=== PATIENT | male | born 1960 | race Caucasian/White ===

== ENCOUNTER 2017-05-07 22:57 | Inpatient (IN) ==
[2017-05-07] MEDS ORDERED: Vancomycin 1,000 MG in D5% in Water 250 ML IVPB ONE (23:27)
[2017-05-07] MEDS ORDERED: Piperacillin/Tazobactam 3.375 GM in D5% in Water (Mini-Bag+) 100 ML IVPB ONE (23:27)
[2017-05-07] MEDS ORDERED: 0.9 % Sodium Chloride 1,000 ML IVC ONE (23:28)
[2017-05-07] MEDS ORDERED: 0.9 % Sodium Chloride 1,000 ML IVC SCH (23:30)
--- NOTE | 2017-05-07 23:31 | Emergency Department Note ---
Disposition Clinical Impression: Cellulitis of left leg, Hyperglycemia, Renal insufficiency Disposition: Transfer Short-Term Hosp Condition: Good Referrals: NO,PCP [Primary Care Provider] - Forms: ED Satisfaction Letter Time of Disposition: 02:18 Skin/Abscess/FB HPI Chief complaint: ED Skin/Abscess/Foreign Body Stated complaint: l leg red & don't feel good Time Seen by Provider: 05/07/17 23:25 Source: patient Mode of arrival: ambulatory Limitations: no limitations Nursing Notes Reviewed: Yes Vital Signs Reviewed: Yes HPI Narrative: 57-year-old diabetic, bilateral amputee and lower extremities, presents with redness of his left BKA amputation. He recently had a wound VAC removed. He has a small ulcer remaining. He developed redness on his stump on Wednesday. He was seen by his physician and placed on oral antibiotics. He states ever since then he has been nauseated and dry heaving. He states his blood sugars up in in 3-400 range. No fever. The redness has gotten worse. Pt Subjective Complaint: discoloration Onset (ago): day(s) (Redness left BKA stump 5) Location: LLE Severity: moderate Quality: burning Consistency: constant Improves with: immobilization Worsens with: palpation, movement Context: other (Recent removal wound VAC.) Associated symptoms: Reports: denies other symptoms Treatments prior to arrival: antibiotic Home Medications Medication Instructions Recorded Confirmed Atorvastatin Calcium 40 mg PO DAILY 05/07/17 05/07/17 Carvedilol [Coreg] 37.5 mg PO BID 05/07/17 05/07/17 Ciprofloxacin [Cipro] 500 mg PO BID 05/07/17 05/07/17 FLUoxetine HCl [PROzac] 20 mg PO DAILY 05/07/17 05/07/17 Furosemide [Lasix] 40 mg PO DAILY 05/07/17 05/07/17 Insulin ASPART [NovoLOG] 26 unit ONCE 05/07/17 05/07/17 Insulin Glargine [Lantus] 0 unit 05/07/17 Lisinopril [Zestril] 40 mg PO DAILY 05/07/17 05/07/17 Magnesium Oxide [Magnesium] 400 mg PO BID 05/07/17 05/07/17 Potassium Chloride [Klor-Con 10] 10 meq PO DAILY 05/07/17 05/07/17 Quetiapine Fumarate [SEROquel] 100 mg PO HS 05/07/17 05/07/17 amLODIPine [Norvasc] 10 mg PO DAILY 05/07/17 05/07/17 Allergies Allergy/AdvReac Type Severity Reaction Status Date / Time Oxycodone [From Percocet] AdvReac Itching Verified 04/06/16 01:43 All systems ED: reviewed and negative except as stated. Constitutional: Denies: fever, chills Eyes: Denies: eye discharge ENT ED: Denies: ear pain, throat pain Cardiovascular: Denies: chest pain Respiratory: Denies: cough, dyspnea Gastrointestinal: Reports: nausea, vomiting. Denies: abdominal pain, diarrhea Genitourinary: Denies: urgency, dysuria, frequency Integumentary: Reports: other (Redness left BKA stump with small ulcer.) Past Medical History - Past Medical History Medical history: Reports: coronary artery disease, CVA, diabetes, hyperlipidemia , hypertension, myocardial infarction, other Surgical history: Reports: coronary bypass (CABG), other Psychiatric history: Reports: anxiety, depression, other - Social History Smoking Status: Current every day smoker Smokeless Tobacco Status: No Alcohol use: Reports: none Drug use: Reports: none Physical Exam - General Limitations: no limitations General appearance: alert, in no apparent distress - Head Head exam: atraumatic, normocephalic - Eye Eye exam: Present: PERRL, EOMI. Absent: scleral icterus, conjunctival injection - ENT ENT exam: normal oropharynx, mucous membranes moist, TM's normal bilaterally - Neck Neck exam: Present: normal inspection, full ROM, trachea midline. Absent: tenderness, lymphadenopathy - Respiratory Respiratory exam: Present: normal lung sounds bilaterally. Absent: respiratory distress, wheezes - Cardiovascular Cardiovascular exam: Present: regular rate, normal rhythm, normal heart sounds - Abdominal Exam Abdominal exam: Present: soft, Non-Tender. Absent: distention, organomegaly, mass - Extremities Exam Extremities exam: Present: other (Right AK amputation. Left BK amputation. There is a 2 cm superficial ulceration on the distal BK stump. There is diffuse erythema of the distal stump and dorsal stump up to the knee. It is warm to touch.) - Neurological Exam Neurological exam: Present: alert, oriented X3. Absent: motor sensory deficit - Psychiatric Psychiatric exam: Present: normal affect, normal mood - Skin Skin exam: Present: warm, dry, erythema (Left BK stump is noted above.) Course - Reevaluation(s) Reevaluation #1: Test results reviewed with the patient and his . We discussed treatment options. I feel he needs to be admitted. The patient and his are requesting transfer to [facility]. I will page the hospitalist to discuss the patient's care with them. Time: 01:24 Reevaluation #2: Discussed with the hospitalist at [facility], Dr. Conley. She wanted me to make the patient aware that he might not be seen by his general surgeon. She wanted me to make them aware that they would not be seen by infectious diseases weekend. She said if they were okay with that than she would accept him. I spoke with the patient again. At this point in time he decided to stay here. Time: 01:47 Reevaluation #3: Discussed with Dr. Shannon. He has accepted patient for admission. Time: 02:17 Vital Signs Temperature 97.1 F L 05/07/17 22:58 Pulse Rate 72 05/07/17 22:58 Respiratory Rate 16 05/07/17 22:58 Blood Pressure 115/57 05/07/17 22:58 O2 Sat by Pulse Oximetry 96 05/07/17 22:58 Temperature 97.1 F L 05/07/17 22:58 Pulse Rate 70 05/08/17 01:28 Respiratory Rate 14 05/08/17 01:28 Blood Pressure 122/73 05/08/17 01:28 O2 Sat by Pulse Oximetry 91 05/08/17 01:28 Oxygen Delivery Oxygen Delivery Room Air Skin/Abscess/Foreign Body - MDM Narrative Medical decision making narrative: Differential includes but is not limited to cellulitis, abscess, osteomyelitis, uncontrolled diabetes mellitus, dehydration, sepsis. His white blood cell count was significantly elevated. His blood sugar is elevated. He will require IV hydration, insulin, IV antibiotics. - Lab Data Lab results reviewed: Yes I reviewed the patient's lab results. Result diagrams: 05/07/17 23:50 05/07/17 23:50 Lab Results 05/07/17 05/07/17 05/07/17 Range/Units 00:45 23:50 23:50 WBC 25.2 H (4.3-11.1) K/mcL RBC 3.50 L (4.19-5.50) M/mcL Hgb 10.6 L (12.9-16.9) g/dL Hct 30.8 L (37.5-50.1) % MCV 88.0 (83.0-100.0) fL MCH 30.3 (28.0-33.3) pg MCHC 34.4 (31.6-35.5) g/dL RDW 13.5 (11.5-14.5) % Plt Count 477 H (140-400) K/mcL MPV 9.7 (9.4-12.4) fL Seg Neutrophils % 88.0 % Band Neutrophils % 6.0 H (0-4) % Lymphocytes % 6.0 % Neutrophils # 23.7 H (1.6-8.9) K/mcL Lymphocytes # 1.5 (0.6-4.6) K/mcL Platelet Estimate Increased H (Normal) Hypochromasia Present A (Not Present) VBG pH (7.32-7.42) pH Units VBG pCO2 (41-51) mmHg VBG pO2 (25-40) mmHg VBG HCO3 (21-27) mEq/L VBG Lactic Acid (0.5-2.2) mmol/L Sodium 128 L (136-145) mEq/L Potassium 4.8 H (3.5-4.5) mEq/L Chloride 94 L (98-109) mEq/L Carbon Dioxide 21 (19-29) mEq/L BUN 31 H (8-26) mg/dL Creatinine 2.25 H (0.72-1.25) mg/dL Est GFR ( Amer) 37 L (> 60) Est GFR (Non-Af Amer) 30 L (> 60) BUN/Creatinine Ratio 14 (6-26) Glucose 534 H* (70-99) mg/dL Calculated Osmolality 297 (280-300) Calcium 9.2 (8.6-10.8) mg/dL Total Bilirubin 0.5 (0.2-1.2) mg/dL AST 12 (5-34) Units/L ALT 15 (0-55) Units/L Alkaline Phosphatase 96 (38-126) Units/L Serum Total Protein 7.3 (6.0-8.3) g/dL Albumin 2.0 L (3.5-5.0) g/dL Globulin 5.3 H (2.4-3.5) g/dL Albumin/Globulin Ratio 0.4 L (1.1-2.2) Beta-Hydroxybutyric Acd 0.35 H (0.02-0.27) mmol/L Urine Color Yellow (Yellow) Urine Clarity Clear (Clear) Urine pH 5.5 (5.0-8.0) pH Units Ur Specific [place] 1.010 (1.010-1.025) Urine Protein 30 H (Neg-Trace) mg/dL Urine Glucose (UA) >=1000 H (Normal) mg/dL Urine Ketones Negative (Negative) mg/dL Urine Blood Small H (Negative) Urine Nitrite Negative (Negative) Urine Bilirubin Negative (Negative) Urine Urobilinogen Normal (Normal) mg/dL Ur Leukocyte Esterase Negative (Negative) Urine Microscopic RBC 0-3 (0-3) per hpf Urine Microscopic WBC 3-5 H (0-3) per hpf Ur Squamous Epith Cells Few (None-Few) per lpf Urine Bacteria None Seen (None-Few) per hpf Ur Culture Indicated? NO (NO) 05/07/17 05/07/17 Range/Units 23:50 23:50 WBC (4.3-11.1) K/mcL RBC (4.19-5.50) M/mcL Hgb (12.9-16.9) g/dL Hct (37.5-50.1) % MCV (83.0-100.0) fL MCH (28.0-33.3) pg MCHC (31.6-35.5) g/dL RDW (11.5-14.5) % Plt Count (140-400) K/mcL MPV (9.4-12.4) fL Seg Neutrophils % % Band Neutrophils % (0-4) % Lymphocytes % % Neutrophils # (1.6-8.9) K/mcL Lymphocytes # (0.6-4.6) K/mcL Platelet Estimate (Normal) Hypochromasia (Not Present) VBG pH 7.39 (7.32-7.42) pH Units VBG pCO2 36.7 L (41-51) mmHg VBG pO2 31 (25-40) mmHg VBG HCO3 22.1 (21-27) mEq/L VBG Lactic Acid 3.0 H (0.5-2.2) mmol/L Sodium (136-145) mEq/L Potassium (3.5-4.5) mEq/L Chloride (98-109) mEq/L Carbon Dioxide (19-29) mEq/L BUN (8-26) mg/dL Creatinine (0.72-1.25) mg/dL Est GFR ( Amer) (> 60) Est GFR (Non-Af Amer) (> 60) BUN/Creatinine Ratio (6-26) Glucose (70-99) mg/dL Calculated Osmolality (280-300) Calcium (8.6-10.8) mg/dL Total Bilirubin (0.2-1.2) mg/dL AST (5-34) Units/L ALT (0-55) Units/L Alkaline Phosphatase (38-126) Units/L Serum Total Protein (6.0-8.3) g/dL Albumin (3.5-5.0) g/dL Globulin (2.4-3.5) g/dL Albumin/Globulin Ratio (1.1-2.2) Beta-Hydroxybutyric Acd (0.02-0.27) mmol/L Urine Color (Yellow) Urine Clarity (Clear) Urine pH (5.0-8.0) pH Units Ur Specific [place] (1.010-1.025) Urine Protein (Neg-Trace) mg/dL Urine Glucose (UA) (Normal) mg/dL Urine Ketones (Negative) mg/dL Urine Blood (Negative) Urine Nitrite (Negative) Urine Bilirubin (Negative) Urine Urobilinogen (Normal) mg/dL Ur Leukocyte Esterase (Negative) Urine Microscopic RBC (0-3) per hpf Urine Microscopic WBC (0-3) per hpf Ur Squamous Epith Cells (None-Few) per lpf Urine Bacteria (None-Few) per hpf Ur Culture Indicated? (NO)
[2017-05-07] MEDS ORDERED: Ondansetron 4 MG/2 ML VIAL ONE (23:56)
[2017-05-07] MEDS: Ondansetron 4 MG/2 ML VIAL IVP STA (23:57)
[2017-05-08 00:16] LABS: VBG HCO3 22.1 mEq/L (21-27); VBG PCO2 36.7 mmHg (41-51); VBG PH 7.39 pH Units (7.32-7.42)
[2017-05-08 00:20] LABS: Hematocrit 30.8 % (37.5-50.1); Hemoglobin 10.6 g/dL (12.9-16.9); Mean Corpuscular HGB Conc 34.4 g/dL (31.6-35.5); Mean Corpuscular Hemoglobin 30.3 pg (28.0-33.3); Mean Platelet Volume 9.7 fL (9.4-12.4); Platelet Count 477 K/mcL (140-400); Red Cell Distribution Width 13.5 % (11.5-14.5)
[2017-05-08 00:26] LABS: Albumin/Globulin Ratio 0.4 (1.1-2.2); Bilirubin,Total 0.5 mg/dL (0.2-1.2); Calcium 9.2 mg/dL (8.6-10.8); Globulin 5.3 g/dL (2.4-3.5); Potassium 4.8 mEq/L (3.5-4.5); Total Protein 7.3 g/dL (6.0-8.3)
[2017-05-08 00:40] LABS: Beta-Hydroxybutyric Acid 0.35 mmol/L (0.02-0.27)
[2017-05-08 00:43] LABS: Lymphocytes # 1.5 K/mcL (0.6-4.6); Neutrophils # 23.7 K/mcL (1.6-8.9)
[2017-05-08 00:44] LABS: Hypochromasia Present (Not Present); Platelet Estimate Increased (Normal)
[2017-05-08 00:49] LABS: Bilirubin,Urine Negative (Negative); Blood,Urine Small (Negative); Clarity,Urine Clear (Clear); Color,Urine Yellow (Yellow); Glucose,Urine (UA) >=1000 mg/dL (Normal); Ketones,Urine Negative (Negative); Leukocyte Esterase,Urine Negative (Negative); Nitrite,Urine Negative (Negative); PH,Urine 5.5 pH Units (5.0-8.0); Protein,Urine 30 mg/dL (Neg-Trace); Urobilinogen,Urine Normal (Normal)
[2017-05-08] MEDS ORDERED: Insulin Human Regular 10 UNIT in 0.9 % Sodium Chloride 10 ML IV ONE (00:53)
[2017-05-08 01:07] LABS: Bacteria,Urine None Seen per hpf (None-Few); RBC,Urine 0-3 per hpf (0-3); Squamous Epithelial Cell,Urine Few per lpf (None-Few)
[2017-05-08] MEDS ORDERED: Ondansetron 4 MG/2 ML VIAL IVP ONE (01:46)
[2017-05-08] MEDS: Ondansetron 4 MG/2 ML VIAL IVP STA (01:51)
[2017-05-08] MEDS ORDERED: Vancomycin 2,000 MG in D5% in Water 250 ML IVPB SCH (03:15)
[2017-05-08] MEDS ORDERED: Ondansetron 4 MG/2 ML VIAL ONE (03:15)
[2017-05-08] MEDS ORDERED: *HR* Dextrose 50 % in Water (Syg) 50 ML SYRINGE IVP PRN (03:15)
[2017-05-08] MEDS ORDERED: Dextrose Gel 15 GM PO PRN ×2 (03:15)
[2017-05-08] MEDS ORDERED: D5% in Water 1,000 ML IVC PRN (03:15)
[2017-05-08] MEDS ORDERED: Naloxone 0.4 MG/ML INJ IVP PRN (03:15)
[2017-05-08] MEDS ORDERED: 0.9 % Sodium Chloride 1,000 ML IVC SCH (03:15)
[2017-05-08] MEDS ORDERED: Vancomycin 1,000 MG in D5% in Water 250 ML IVPB ONE (04:00)
[2017-05-08] MEDS: 0.9 % Sodium Chloride 1,000 ML IVC SCH ×2 (04:00→15:16)
[2017-05-08] MEDS: *HR* HYDROcodone/Acet 5/325 mg TABLET PO PRN ×4 (05:22→22:00)
[2017-05-08] MEDS: Ondansetron 4 MG/2 ML VIAL IVP SCH ×5 (05:23→21:42)
[2017-05-08] MEDS: Insulin LISPRO 300 UNITS/3 ML VIAL SQ SCH ×3 (05:46→18:15)
[2017-05-08] MEDS ORDERED: Lisinopril 20 MG TABLET PO SCH (09:00)
[2017-05-08] MEDS ORDERED: Furosemide 40 MG TABLET PO SCH (09:00)
[2017-05-08] MEDS: Piperacillin/Tazobactam 3.375 GM in D5% in Water (Mini-Bag+) 100 ML IVPB SCH ×2 (09:04→15:15)
[2017-05-08] MEDS: Magnesium Oxide 400 MG TABLET PO SCH ×2 (09:33→21:41)
[2017-05-08] MEDS: FLUoxetine 20 MG CAPSULE PO SCH (09:35)
[2017-05-08] MEDS: amLODIPine 5 MG TABLET PO SCH (09:38)
[2017-05-08 12:55] LABS: Hemoglobin A1C 11.2 %
--- NOTE | 2017-05-08 15:48 | Internal Med History&Physical ---
Date of Encounter: 05/08/17 Time of Encounter: 15:15 Assessment and Plan (1) Cellulitis of left leg Current visit: Yes Status: Acute He has been started on IV vancomycin and Zosyn. Will add lactobacillus. Further workup will be done as needed. (2) Diabetes Current visit: No Status: Chronic We will start Levemir and Amaryl and do Accu-Cheks with SSI. 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 Will further adjust BP meds as needed. 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 Will hold lisinopril and Lasix and monitor renal indices. Internal Medicine - H&P: HPI Chief complaint: Left leg infection Admitted From: Home Plans for Post Hospital Care: Home History of present illness: Mr. Womack is a 57 year old male came to the hospital stating he had increasing redness and discomfort in his left leg stump over the preceding week. He saw Dr. Britton May 03 and received a prescription for antibiotic. He started the antibiotic but began vomiting the following day and had ongoing vomiting over the next 3 days. He decided to come to emergency room the evening of May 07. He was evaluated and found to have left stump cellulitis with leukocytosis and left shift. There was acute on chronic renal insufficiency. He was admitted to [facility] floor for ongoing care needs. He states he had wound VAC removed from left leg ulcer approximately 3 weeks ago. He has been following regularly at [place] [facility]. 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 Musk skeletal history is negative for significant bone joint or muscle disorders otherwise. Past Med Surg Social Fam HX - Past Medical History Medical history: coronary artery disease, CVA, diabetes, hyperlipidemia, hypertension, myocardial infarction, other Psychiatric history: anxiety, depression, other - Past Surgical History Surgical History: coronary bypass (CABG), other - Social History Smoking Status: Current every day smoker Smokeless Tobacco Status: No Alcohol use: none Drug use: none - Family History Father Living Status: Hx Family Cardiac Disorders: Yes Hx Family Respiratory Disorders: Yes Hx Family Cancer: No Hx Family GI Disorders: Yes Hx Family Endocrine Disorder: Yes Hx Family Neuromuscular Disorders: No Hx Family Neurologic Disorders: No Hx Family HEENT Disorders: No Hx Family Autoimmune Disorders: No Internal Medicine - H&P: Meds Atorvastatin Calcium 40 mg PO DAILY 05/07/17 [History] Carvedilol [Coreg] 37.5 mg PO BID 05/07/17 [History] Ciprofloxacin [Cipro] 500 mg PO BID 05/07/17 [History] FLUoxetine HCl [PROzac] 20 mg PO DAILY 05/07/17 [History] Furosemide [Lasix] 40 mg PO DAILY 05/07/17 [History] Insulin ASPART [NovoLOG] 26 unit ONCE 05/07/17 [History] Insulin Glargine [Lantus] 0 unit 05/07/17 [History] Lisinopril [Zestril] 40 mg PO DAILY 05/07/17 [History] Magnesium Oxide [Magnesium] 400 mg PO BID 05/07/17 [History] Potassium Chloride [Klor-Con 10] 10 meq PO DAILY 05/07/17 [History] Quetiapine Fumarate [SEROquel] 100 mg PO HS 05/07/17 [History] amLODIPine [Norvasc] 10 mg PO DAILY 05/07/17 [History] Allergies Oxycodone [From Percocet] Adverse Reaction (Verified 04/06/16 01:43) Itching All Systems PM: A 10-system review of systems was performed and is negative for pertinent findings except as documented above in the HPI. Review of systems: Gen.: He states his weight has been stable past few months Cardiovascular: He has history of hypertension. He reports ASHD status post 3 vessel CABG approximately 2001. He has not had stents. He denies heart failure ME DVT or pulmonary embolus Respiratory: He has smoked since age 22 up to 1 pack per day. He denies known chronic lung disease GI: He denies disorders of his liver gallbladder or exocrine pancreas : He states he had a kidney stone in the distant past. He was unaware he had chronic kidney disease. He denies other kidney bladder prostate disorders Neurologic: He reports 2 CVAs in the past most recent one approximately 2008. The strokes have left him with right arm weakness and numbness and right visual field defects. He denies seizures. Endocrine: He was diagnosed with DM 2 approximately 2009. He has hyperlipidemia but denies known thyroid disease Hematology/oncology: He denies blood disorders or cancers. He was unaware he was anemic. Psychiatric: He has anxiety and depression but denies other mental health issues [place] skeletal: As per history of present illness - Constitutional Vitals: Temp Pulse Resp BP Pulse Ox 98.2 F 61 17 133/78 93 05/08/17 14:12 05/08/17 14:12 05/08/17 14:12 05/08/17 14:12 05/08/17 14:12 Exam: Gen.: He is a well-developed overweight male lying in bed who appears in no acute distress HEENT: Head is atraumatic and normal cephalic. Eyes: EOMI. There is no scleral icterus. Mouth: Mucosa is moist. Neck: Supple and nontender. There is no thyromegaly or adenopathy noted. Heart: Regular without murmurs gallops or ectopics Lungs: No wheezes or crackles are heard. Abdomen: He has a large abdomen. It is nontender to palpation. Extremities: He has bilateral BKA. There is increased redness with some edema of the left leg stump area. There are 2 shallow ulcerative areas in the left BKA amputation incision with minimal drainage observed. The largest of these is approximately 8-10 mm. The right stump is unremarkable. Neurologic: Mental status: He is talkative and a fair to good historian. He has difficulty remembering some details of his past history. Cranial nerves: Smile is symmetric. Forehead wrinkles bilaterally. Tongue protrudes midline. EOMI. Motor: There is no pronator drift. Cerebellar: Finger to nose is intact bilaterally. Skin: Other than the left stump abnormalities described above his skin is warm and dry and otherwise unremarkable. Internal Med - H&P Results - Labs CBC & Chem 7: 05/07/17 23:50 05/07/17 23:50
[2017-05-08] MEDS: Lactobacillus 1 EACH CAP.SPRINK PO SCH (21:42)
[2017-05-09] MEDS: Insulin LISPRO 300 UNITS/3 ML VIAL SQ SCH ×4 (00:45→17:58)
[2017-05-09] MEDS: Piperacillin/Tazobactam 3.375 GM in D5% in Water (Mini-Bag+) 100 ML IVPB SCH ×4 (00:47→23:07)
[2017-05-09] MEDS: Ondansetron 4 MG/2 ML VIAL IVP SCH ×6 (04:35→23:07)
[2017-05-09] MEDS ORDERED: Vancomycin 2,000 MG in D5% in Water 500 ML IVPB SCH ×2 (05:00)
[2017-05-09 06:02] LABS: Basophils # 0.1 K/mcL (0.0-0.2); Basophils % 0.3 %; Eosinophils # 0.2 K/mcL (0.0-0.6); Eosinophils % 0.8 %; Immature Granulocytes % 1.1 % (0-4); Lymphocytes # 1.5 K/mcL (0.6-4.6); Lymphocytes % 6.4 %; Mean Corpuscular HGB Conc 33.3 g/dL (31.6-35.5); Mean Corpuscular Hemoglobin 29.8 pg (28.0-33.3); Mean Corpuscular Volume 89.3 fL (83.0-100.0); Mean Platelet Volume 9.6 fL (9.4-12.4); Monocytes # 1.1 K/mcL (0.0-1.3); Monocytes % 4.6 %; Neutrophils # 20.1 K/mcL (1.6-8.9); Platelet Count 479 K/mcL (140-400); Red Blood Count 3.36 M/mcL (4.19-5.50); Red Cell Distribution Width 13.6 % (11.5-14.5); Segmented Neutrophils % 86.8 %
[2017-05-09 06:20] LABS: Calcium 8.9 mg/dL (8.6-10.8); Magnesium 1.5 mg/dL (1.6-2.6); Potassium 4.1 mEq/L (3.5-4.5)
[2017-05-09] MEDS: *HR* HYDROcodone/Acet 5/325 mg TABLET PO PRN ×4 (06:45→23:06)
[2017-05-09] MEDS: FLUoxetine 20 MG CAPSULE PO SCH (08:47)
[2017-05-09] MEDS: amLODIPine 5 MG TABLET PO SCH (08:47)
[2017-05-09] MEDS: Magnesium Oxide 400 MG TABLET PO SCH ×2 (08:47→23:06)
[2017-05-09] MEDS: Lactobacillus 1 EACH CAP.SPRINK PO SCH ×2 (08:47→23:06)
--- NOTE | 2017-05-09 09:53 | Internal Med Progress Note ---
Date of Encounter: 05/09/17 Time of Encounter: 09:40 - Assessment and plan (1) Cellulitis of left leg Current Visit: Yes Status: Acute Assessment and plan: May 09. Continue IV vancomycin, Zosyn, and lactobacillus. Recheck labs in a.m. (2) Diabetes Current Visit: No Status: Chronic Assessment and plan: May 09. Continue Levemir, Amaryl, and Accu-Cheks with SSI. 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 Continue Norvasc and Coreg but hold lisinopril and Lasix. Qualifiers: Hypertension type: essential hypertension Qualified Code(s): I10 - Essential (primary) hypertension (4) Renal insufficiency Current Visit: Yes Status: Chronic Assessment and plan: May 09. Improved with creatinine 1.93 and estimated GFR 36. We will recheck labs in a.m. (5) Anemia Current Visit: Yes Status: Acute Assessment and plan: May 09. Anemia testing is pending Qualifiers: Anemia type: unspecified type Qualified Code(s): D64.9 - Anemia, unspecified - Subjective Interval history: May 09. He is sleeping. There have been no new problems overnight. - Constitutional Vitals: Temp Pulse Resp BP Pulse Ox 99.2 F 61 18 132/56 92 05/09/17 07:23 05/09/17 07:23 05/09/17 07:23 05/09/17 07:23 05/09/17 07:23 Exam: There is noticeable improvement in the erythema of the left leg stump. There is no significant drainage from the open areas of the incision line. There is no lymphangitic streaking. I reviewed his medications and lab results. Internal Medicine: Result - Labs CBC & Chem 7: 05/09/17 04:30 05/09/17 04:30 Labs: Short CBC 05/09/17 Range/Units 04:30 WBC 23.1 H (4.3-11.1) K/mcL Hgb 10.0 L (12.9-16.9) g/dL Hct 30.0 L (37.5-50.1) % Plt Count 479 H (140-400) K/mcL Neutrophils # 20.1 H (1.6-8.9) K/mcL BMP 05/09/17 04:30 Sodium 132 L Potassium 4.1 Chloride 98 Carbon Dioxide 21 BUN 32 H Creatinine 1.93 H Glucose 238 H Calcium 8.9 Consult Discharge Plan - Plan Referrals: NO,PCP [Primary Care Provider] - 1 week
[2017-05-09] MEDS: *HR* Glimepiride 2 MG TABLET PO SCH (10:57)
[2017-05-09 16:38] LABS: % Iron Saturation 15 % (20-55); Iron 21 mcg/dL (65-175); Transferrin 102 mg/dL (174-364)
[2017-05-09 17:12] LABS: Folate 9.3 ng/mL (7.0-31.4)
[2017-05-09 17:48] LABS: Ferritin 1753 ng/ml (22-275)
[2017-05-09] MEDS: Insulin DETEMIR 100 UNIT/ML X5UNITS SQ SCH (23:06)
[2017-05-10] MEDS: Insulin LISPRO 300 UNITS/3 ML VIAL SQ SCH ×5 (02:08→20:32)
[2017-05-10] MEDS: Ondansetron 4 MG/2 ML VIAL IVP SCH ×3 (04:10→12:52)
[2017-05-10] MEDS: *HR* HYDROcodone/Acet 5/325 mg TABLET PO PRN ×4 (06:07→20:21)
[2017-05-10 06:24] LABS: Basophils # 0.1 K/mcL (0.0-0.2); Basophils % 0.2 %; Eosinophils # 0.2 K/mcL (0.0-0.6); Eosinophils % 0.8 %; Hematocrit 30.2 % (37.5-50.1); Hemoglobin 10.2 g/dL (12.9-16.9); Immature Granulocytes % 1.4 % (0-4); Lymphocytes # 1.3 K/mcL (0.6-4.6); Lymphocytes % 5.9 %; Mean Corpuscular HGB Conc 33.8 g/dL (31.6-35.5); Mean Corpuscular Volume 88.8 fL (83.0-100.0); Mean Platelet Volume 9.5 fL (9.4-12.4); Monocytes # 1.3 K/mcL (0.0-1.3); Monocytes % 5.7 %; Neutrophils # 19.4 K/mcL (1.6-8.9); Platelet Count 486 K/mcL (140-400); Red Cell Distribution Width 13.6 % (11.5-14.5)
[2017-05-10 06:57] LABS: Calcium 8.7 mg/dL (8.6-10.8); Potassium 4.1 mEq/L (3.5-4.5)
[2017-05-10] MEDS ORDERED: Vancomycin 2,000 MG in D5% in Water 250 ML IVPB ONE (07:36)
[2017-05-10] MEDS: *HR* Glimepiride 2 MG TABLET PO SCH (08:49)
[2017-05-10] MEDS: amLODIPine 5 MG TABLET PO SCH (08:49)
[2017-05-10] MEDS: Lactobacillus 1 EACH CAP.SPRINK PO SCH ×2 (08:49→20:20)
[2017-05-10] MEDS: Magnesium Oxide 400 MG TABLET PO SCH ×2 (08:50→20:21)
[2017-05-10] MEDS: FLUoxetine 20 MG CAPSULE PO SCH (08:52)
[2017-05-10] MEDS: Piperacillin/Tazobactam 3.375 GM in D5% in Water (Mini-Bag+) 100 ML IVPB SCH (08:53)
[2017-05-10] MEDS: Insulin DETEMIR 100 UNIT/ML X5UNITS SQ SCH ×2 (09:02→20:34)
--- NOTE | 2017-05-10 09:41 | Internal Med Progress Note ---
Date of Encounter: 05/10/17 Time of Encounter: 09:30 - Assessment and plan (1) Cellulitis of left leg Current Visit: Yes Status: Acute Assessment and plan: May 2. Continue IV vancomycin, Zosyn, and lactobacillus. Recheck labs in a.m. May 3. Wound culture returned showing MRSA. Will discontinue Zosyn and start IV doxycycline and continue vancomycin and lactobacillus. (2) Diabetes Current Visit: No Status: Chronic Assessment and plan: May 2. Continue Levemir, Amaryl, and Accu-Cheks with SSI. May 3. Will increase Levemir and Amaryl and continue Accu-Cheks with SSI. Qualifiers: Diabetes mellitus type: type 2 Diabetes mellitus complication status: with hyperglycemia Diabetes mellitus fpc insulin use: with fpc use Qualified Code(s): E11.65 - Type 2 diabetes mellitus with hyperglycemia (3) Hypertension Current Visit: No Status: Chronic Assessment and plan: May 09. Continue Norvasc and Coreg but hold lisinopril and Lasix. May 10. Blood pressure is borderline low. We will decrease Norvasc. Continue to withhold lisinopril and Lasix. Qualifiers: Hypertension type: essential hypertension Qualified Code(s): I10 - Essential (primary) hypertension (4) Renal insufficiency Current Visit: Yes Status: Chronic Assessment and plan: May 09. Improved with creatinine 1.93 and estimated GFR 36. We will recheck labs in a.m. May 3. Further improvement with creatinine 1.81 and estimated GFR 39. Continue present regimen. (5) Anemia Current Visit: Yes Status: Acute Assessment and plan: May 09. Anemia testing is pending May 10. Anemia testing showed ferritin 1753, B12 379, folate 9.3, iron 21, transferrin saturation 15%, and transferrin 102. Qualifiers: Anemia type: unspecified type Qualified Code(s): D64.9 - Anemia, unspecified - Subjective Interval history: May 09. He is sleeping. There have been no new problems overnight. May 10. He has no new complaints and states he feels better overall. - Constitutional Vitals: Temp Pulse Resp BP Pulse Ox 98.9 F 70 20 121/75 94 05/10/17 06:25 05/10/17 06:25 05/10/17 06:25 05/10/17 06:25 07/03/17 06:25 Exam: He is resting comfortably in bed. There is no significant drainage from his left stump incision ulcers. The erythema has further lessened since yesterday. I reviewed his medications and lab results. Internal Medicine: Result - Labs CBC & Chem 7: 05/10/17 05:35 05/10/17 05:35 Labs: Short CBC 05/10/17 Range/Units 05:35 WBC 22.6 H (4.3-11.1) K/mcL Hgb 10.2 L (12.9-16.9) g/dL Hct 30.2 L (37.5-50.1) % Plt Count 486 H (140-400) K/mcL Neutrophils # 19.4 H (1.6-8.9) K/mcL BMP 05/10/17 05:35 Sodium 128 L Potassium 4.1 Chloride 96 L Carbon Dioxide 20 BUN 30 H Creatinine 1.81 H Glucose 240 H Calcium 8.7 Consult Discharge Plan - Plan Referrals: NO,PCP [Primary Care Provider] - 1 week
[2017-05-10] MEDS: Doxycycline 100 MG in 0.9 % Sodium Chloride Mini Bag 100 ML IVPB SCH ×2 (12:52→16:47)
[2017-05-10] MEDS ORDERED: Ondansetron 4 MG/2 ML VIAL IVP PRN (15:38)
[2017-05-11 04:30] LABS: Basophils # 0.1 K/mcL (0.0-0.2); Basophils % 0.2 %; Eosinophils # 0.3 K/mcL (0.0-0.6); Eosinophils % 1.2 %; Hematocrit 29.1 % (37.5-50.1); Hemoglobin 9.8 g/dL (12.9-16.9); Immature Granulocytes % 1.3 % (0-4); Lymphocytes # 1.7 K/mcL (0.6-4.6); Lymphocytes % 7.3 %; Mean Corpuscular HGB Conc 33.7 g/dL (31.6-35.5); Mean Corpuscular Hemoglobin 29.6 pg (28.0-33.3); Mean Corpuscular Volume 87.9 fL (83.0-100.0); Mean Platelet Volume 9.1 fL (9.4-12.4); Monocytes # 1.5 K/mcL (0.0-1.3); Monocytes % 6.2 %; Neutrophils # 19.8 K/mcL (1.6-8.9); Platelet Count 460 K/mcL (140-400); Red Blood Count 3.31 M/mcL (4.19-5.50); Red Cell Distribution Width 13.7 % (11.5-14.5); Segmented Neutrophils % 83.8 %
[2017-05-11 04:46] LABS: Calcium 8.6 mg/dL (8.6-10.8); Magnesium 1.6 mg/dL (1.6-2.6); Potassium 3.7 mEq/L (3.5-4.5)
[2017-05-11] MEDS: Doxycycline 100 MG in 0.9 % Sodium Chloride Mini Bag 100 ML IVPB SCH ×2 (06:12→17:48)
[2017-05-11] MEDS: *HR* HYDROcodone/Acet 5/325 mg TABLET PO PRN ×4 (06:14→20:05)
[2017-05-11] MEDS: Magnesium Oxide 400 MG TABLET PO SCH ×2 (10:42→20:05)
[2017-05-11] MEDS: Lactobacillus 1 EACH CAP.SPRINK PO SCH ×2 (10:43→20:05)
[2017-05-11] MEDS: *HR* Glimepiride 2 MG TABLET PO SCH (10:43)
[2017-05-11] MEDS: Insulin DETEMIR 100 UNIT/ML X5UNITS SQ SCH ×2 (10:44→20:06)
[2017-05-11] MEDS: amLODIPine 5 MG TABLET PO SCH (10:44)
[2017-05-11] MEDS: FLUoxetine 20 MG CAPSULE PO SCH (10:44)
[2017-05-11] MEDS: Insulin LISPRO 300 UNITS/3 ML VIAL SQ SCH ×4 (10:45→20:05)
[2017-05-11] MEDS ORDERED: Vancomycin 1,500 MG in D5% in Water 250 ML IVPB SCH (11:00)
--- NOTE | 2017-05-11 11:10 | Internal Med Progress Note ---
Date of Encounter: 05/11/17 Time of Encounter: 10:55 - Assessment and plan (1) Cellulitis of left leg Current Visit: Yes Status: Acute Assessment and plan: May 2. Continue IV vancomycin, Zosyn, and lactobacillus. Recheck labs in a.m. May 3. Wound culture returned showing MRSA. Will discontinue Zosyn and start IV doxycycline and continue vancomycin and lactobacillus. May 4. Continue doxycycline, vancomycin, and lactobacillus. Will order CT of leg chest abdomen and pelvis since he has persistent leukocytosis with left shift. (2) Diabetes Current Visit: No Status: Chronic Assessment and plan: May 2. Continue Levemir, Amaryl, and Accu-Cheks with SSI. May 3. Will increase Levemir and Amaryl and continue Accu-Cheks with SSI. May 11. Blood sugars improved. Continue present dose of Levemir and Amaryl Qualifiers: Diabetes mellitus type: type 2 Diabetes mellitus complication status: with hyperglycemia Diabetes mellitus halfway insulin use: with salvage determiner use Qualified Code(s): E11.65 - Type 2 diabetes mellitus with hyperglycemia (3) Hypertension Current Visit: No Status: Chronic Assessment and plan: May 2. Continue Norvasc and Coreg but hold lisinopril and Lasix. May 10. Blood pressure is borderline low. We will decrease Norvasc. Continue to withhold lisinopril and Lasix. May 11. Blood pressures stabilize. Continue present regimen Qualifiers: Hypertension type: essential hypertension Qualified Code(s): I10 - Essential (primary) hypertension (4) Renal insufficiency Current Visit: Yes Status: Chronic Assessment and plan: May 09. Improved with creatinine 1.93 and estimated GFR 36. We will recheck labs in a.m. May 3. Further improvement with creatinine 1.81 and estimated GFR 39. Continue present regimen. May 4. Azotemia continues to lessen. Continue present regimen (5) Anemia Current Visit: Yes Status: Acute Assessment and plan: May 2. Anemia testing is pending May 10. Anemia testing showed ferritin 1753, B12 379, folate 9.3, iron 21, transferrin saturation 15%, and transferrin 102. Qualifiers: Anemia type: unspecified type Qualified Code(s): D64.9 - Anemia, unspecified - Subjective Interval history: May 09. He is sleeping. There have been no new problems overnight. May 10. He has no new complaints and states he feels better overall. May 11. He has no new complaints. - Constitutional Vitals: Temp Pulse Resp BP Pulse Ox 98.4 F 62 16 144/81 91 05/11/17 10:48 05/11/17 10:48 05/11/17 10:48 05/11/17 10:48 05/11/17 10:48 Exam: He is resting comfortably in bed. His affect is bright and cheerful. I reviewed his medications and lab results. Internal Medicine: Result - Labs CBC & Chem 7: 05/11/17 04:13 05/11/17 04:13 Labs: Short CBC 05/11/17 Range/Units 04:13 WBC 23.6 H (4.3-11.1) K/mcL Hgb 9.8 L (12.9-16.9) g/dL Hct 29.1 L (37.5-50.1) % Plt Count 460 H (140-400) K/mcL Neutrophils # 19.8 H (1.6-8.9) K/mcL BMP 05/11/17 04:13 Sodium 131 L Potassium 3.7 Chloride 100 Carbon Dioxide 22 BUN 26 Creatinine 1.51 H Glucose 116 H Calcium 8.6 Consult Discharge Plan - Plan Referrals: NO,PCP [Primary Care Provider] - 1 week
[2017-05-11] MEDS: 0.45 % Sodium Chloride w/KCl 20 MEQ/1,000 ML MLS IVC SCH (15:34)
[2017-05-11] MEDS ORDERED: Aminoglycoside Consult 1 EACH MC ONE (16:00)
[2017-05-12] MEDS: *HR* HYDROcodone/Acet 5/325 mg TABLET PO PRN ×2 (05:06→09:17)
[2017-05-12 07:14] VITALS: BP 105/58
[2017-05-12] MEDS: *HR* Glimepiride 2 MG TABLET PO SCH (08:11)
[2017-05-12] MEDS: FLUoxetine 20 MG CAPSULE PO SCH (08:12)
[2017-05-12] MEDS: amLODIPine 5 MG TABLET PO SCH (08:13)
[2017-05-12] MEDS: Lactobacillus 1 EACH CAP.SPRINK PO SCH (08:13)
[2017-05-12] MEDS: Magnesium Oxide 400 MG TABLET PO SCH (08:13)
[2017-05-12 08:14] LABS: Basophils # 0.1 K/mcL (0.0-0.2); Basophils % 0.2 %; Eosinophils # 0.3 K/mcL (0.0-0.6); Eosinophils % 1.2 %; Hematocrit 29.3 % (37.5-50.1); Hemoglobin 9.9 g/dL (12.9-16.9); Immature Granulocytes % 2.6 % (0-4); Lymphocytes # 1.6 K/mcL (0.6-4.6); Lymphocytes % 6.8 %; Mean Corpuscular HGB Conc 33.8 g/dL (31.6-35.5); Mean Corpuscular Volume 88.8 fL (83.0-100.0); Mean Platelet Volume 9.2 fL (9.4-12.4); Monocytes # 1.3 K/mcL (0.0-1.3); Monocytes % 5.4 %; Platelet Count 448 K/mcL (140-400); Red Cell Distribution Width 13.7 % (11.5-14.5); Segmented Neutrophils % 83.8 %
[2017-05-12] MEDS: Insulin LISPRO 300 UNITS/3 ML VIAL SQ SCH (08:16)
[2017-05-12 08:22] LABS: Neutrophils # 19.9 K/mcL (1.6-8.9)
[2017-05-12 08:38] LABS: BUN/Creatinine Ratio 18 (6-26); Blood Urea Nitrogen 24 mg/dL (8-26); Calcium 8.7 mg/dL (8.6-10.8); Carbon Dioxide 21 mEq/L (19-29); Chloride 101 mEq/L (98-109); Glucose 147 mg/dL (70-99); Osmolality,Calculated 281 (280-300); Potassium 4.2 mEq/L (3.5-4.5); Sodium 132 mEq/L (136-145); eGFR For African Americans > 60 (> 60); eGFR For Non-African Americans 54 (> 60)
[2017-05-12] MEDS: Insulin DETEMIR 100 UNIT/ML X5UNITS SQ SCH (09:14)
[2017-05-12] MEDS: Doxycycline 100 MG in 0.9 % Sodium Chloride Mini Bag 100 ML IVPB SCH (09:15)
[2017-05-12] MEDS: 0.45 % Sodium Chloride w/KCl 20 MEQ/1,000 ML MLS IVC SCH (09:16)
--- NOTE | 2017-05-12 10:07 | Discharge Summary ---
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: with remote computer terminal operator use Qualified Code(s): E11.65 - Type 2 diabetes mellitus with hyperglycemia (3) Hypertension Priority: Secondary Status: Chronic Qualifiers: Hypertension type: essential hypertension Qualified Code(s): I10 - Essential (primary) hypertension (4) Renal insufficiency Priority: Secondary Status: Chronic (5) Anemia Priority: Secondary Status: Acute Qualifiers: Anemia type: unspecified type Qualified Code(s): D64.9 - Anemia, unspecified - Discharge Medications Prescriptions: Doxycycline 100 mg PO BID #10 capsule Glimepiride [Amaryl] 2 mg PO 0800 #30 tablet Lactobacillus [Culturelle] 1 each PO BID #10 cap.sprink Sulfamethoxazole/Trimeth DS [Bactrim DS] 1 each PO BID #10 tablet Home Medications: Atorvastatin Calcium 40 mg PO DAILY 05/07/17 [History] FLUoxetine HCl [Prozac] 20 mg PO DAILY 05/07/17 [History] Insulin ASPART [NovoLOG] 26 unit ONCE 05/07/17 [History] Insulin Glargine [Lantus] 0 unit 05/07/17 [History] Quetiapine Fumarate [Seroquel] 100 mg PO HS 05/07/17 [History] Carvedilol [Coreg] 25 mg PO BID #0 05/12/17 [Rx] Doxycycline 100 mg PO BID #10 capsule 05/12/17 [Rx] Glimepiride [Amaryl] 2 mg PO 0800 #30 tablet 05/12/17 [Rx] Lactobacillus [Culturelle] 1 each PO BID #10 cap.sprink 05/12/17 [Rx] Sulfamethoxazole/Trimeth DS [Bactrim DS] 1 each PO BID #10 tablet 05/12/17 [Rx] amLODIPine [Norvasc] 5 mg PO DAILY #0 05/12/17 [Rx] Allergies/Adverse Reactions: Allergies Oxycodone [From Percocet] Adverse Reaction (Verified 04/06/16 01:43) Itching Procedures/tests Complete & Pending: Procedures Performed prior 72 hours Category Date Time Status CT abd pelvis wo no iv no oral [CT] Routine Cat Scan 05/11/17 11:[address] chest wo con [CT] Routine Cat Scan 05/11/17 11:[address] femur LT wo con [CT] Routine Cat Scan 05/11/17 11:03 Completed Date of admission: 05/08/17 03:01 Primary care physician: Chely Phillips CNP - Patient Status Disposition: Home Health Service Condition: Good Functional capacity at discharge: wheelchair bound Overall status at discharge: patient is progressing back to baseline - Discharge Instructions Follow Up With: Chely Phillips CNP [Advanced Practice Nurse] - 1 week - Diet and Activity Activity: resume usual activities as tolerated Diet: advance to your usual diet Hospital course: Mr. Womack is a 57 year old male who came to the hospital stating he had increasing redness and discomfort in his left leg stump over the preceding week. He saw Dr. Britton May 03 and received a prescription for antibiotic. He started the antibiotic but began vomiting the following day and had ongoing vomiting over the next 3 days. He decided to come to emergency room the evening of May 07. He was evaluated and found to have left stump cellulitis with leukocytosis and left shift. There was acute on chronic renal insufficiency. He was admitted to [facility] floor for ongoing care needs. Initial orders were written by the emergency room physician. I saw him on May 08 and performed a history and physical. He was started empirically on IV vancomycin and Zosyn. Wound culture returned showing MRSA. Zosyn was discontinued and IV doxycycline was added. He had clinical improvement of the wound with decreased redness and pain. He remained afebrile during his hospital stay. His leukocytosis did not change significantly however so a CT was done of the left leg. No abscess was seen. CT of the chest abdomen pelvis was also done without significant pathology noted other than possible bilateral upper lobe groundglass appearance possibly indicating infection. Repeat chest CT in 3-6 months was recommended. I felt it was reasonable for him to continue with oral antibiotics for 5 additional days at discharge and his PCP and/or wound clinic can monitor the leukocytosis. Lasix and lisinopril were discontinued. Norvasc was reduced to 5 mg daily. He had borderline hypotension despite these measures. His Coreg will be reduced 25 mg twice a day at discharge. Azotemia improved with BUN and creatinine being 24 and 1.37 respectively on the day of discharge with estimated GFR 54. Magnesium level returned to normal with discontinuation of the Lasix. He will remain off supplemental magnesium at discharge. Anemia testing showed iron 21, transferrin saturation 15%, transferrin 102, ferritin 1753, B12 379, and folate 9.3. He will be discharged home today and follow with his PCP and/or Dr. Britton within one week. - Time Spent with Patient Total time spent providing and/or coordinating discharge services: - Constitutional Vitals: Temp Pulse Resp BP Pulse Ox 98.6 F 61 18 105/58 94 05/12/17 07:13 05/12/17 07:13 05/12/17 07:13 05/12/17 07:13 05/12/17 07:13
--- NOTE | 2017-05-12 10:15 | Physician Discharge Referral ---
Home Health/Hosp Referral Info Transfer to: Home Health Attending Provider: Shiva Provider in Charge Post Discharge: PCP (Chely Phillips CNP) - Diagnosis (1) Cellulitis of left leg Priority: Primary Status: Acute (2) Diabetes Priority: Secondary Status: Chronic (3) Hypertension Priority: Secondary Status: Chronic (4) Renal insufficiency Priority: Secondary Status: Chronic (5) Anemia Priority: Secondary Status: Acute - Respiratory Orders Smoking Cessation: Smoking cessation has been advised. For more information, call the [place] Tobacco Quit Line at 7-033-RQWZ-NOW. - Diet/Nutrition Diet/Nutrition Orders: No Concentrated Sweets - Services Needed Following services are medically necessary services: Nursing, Home Health Aide, Physical Therapy, Occupational Therapy - Transfer Medications Prescriptions: Doxycycline 100 mg PO BID #10 capsule Glimepiride [Amaryl] 2 mg PO 0800 #30 tablet Lactobacillus [Culturelle] 1 each PO BID #10 cap.sprink Sulfamethoxazole/Trimeth DS [Bactrim DS] 1 each PO BID #10 tablet Home Medications: Atorvastatin Calcium 40 mg PO DAILY 05/07/17 [History] FLUoxetine HCl [Prozac] 20 mg PO DAILY 05/07/17 [History] Insulin ASPART [NovoLOG] 26 unit ONCE 05/07/17 [History] Insulin Glargine [Lantus] 0 unit 05/07/17 [History] Quetiapine Fumarate [Seroquel] 100 mg PO HS 05/07/17 [History] Carvedilol [Coreg] 25 mg PO BID #0 05/12/17 [Rx] Doxycycline 100 mg PO BID #10 capsule 05/12/17 [Rx] Glimepiride [Amaryl] 2 mg PO 0800 #30 tablet 05/12/17 [Rx] Lactobacillus [Culturelle] 1 each PO BID #10 cap.sprink 05/12/17 [Rx] Sulfamethoxazole/Trimeth DS [Bactrim DS] 1 each PO BID #10 tablet 05/12/17 [Rx] amLODIPine [Norvasc] 5 mg PO DAILY #0 05/12/17 [Rx] Allergies/Adverse Reactions: Allergies Oxycodone [From Percocet] Adverse Reaction (Verified 04/06/16 01:43) Itching Certification: Further, I certify that my clinical findings support that this patient is homebound (i.e. absences from home require considerable and taxing effort and are for medical reasons or restorationism services or infrequently or short duration when for other reasons) because: Homebound Reason: Leaving home requires considerable and taxing effort due to condition (Bilateral BKA with wheelchair dependence) Attestation: My signature below is to certify that this patient is under my care and that I, or nurse practitioner, or a physician's tutoring assistant working with me, has a face-to -face encounter with this patient.
== END 2017-05-12 11:11 | disposition home health service (06) | DRG 380 ==
LOC: INPPIK 22:57 → EMEROOPIK 22:57 → INPPIK 05-08 03:22
PROVIDERS: ADMIT Internal Medicine; ATTEND Internal Medicine